=== PATIENT | male | born 1970 | race Two or more races ===

== ENCOUNTER 2019-12-20 02:14 | Emergency (ER) | payer SELFPAY ==
[~2019-12-20] VITALS: Ht 188 cm; Wt 81.6 kg
[2019-12-20] MEDS ORDERED: NITROGLYCERIN PACKET 1 GM PACKET TD ONE (02:30)
[2019-12-20] MEDS ORDERED: HYDROCODONE/APAP 10/325MG 1 EA TABLET PO ONE (02:30)
[2019-12-20] MEDS ORDERED: ASPIRIN 81 MG TAB.CHEW PO ONE (02:30)
[2019-12-20] MEDS ORDERED: ONDANSETRON 4 MG TAB.RAPDIS SL ONE (02:30)
[2019-12-20] MEDS ORDERED: NITROGLYCERIN PACKET 1 GM PACKET ONE (02:36)
[2019-12-20] MEDS ORDERED: ONDANSETRON 4 MG TAB.RAPDIS ONE (02:36)
[2019-12-20] MEDS ORDERED: HYDROCODONE/APAP 10/325MG 1 EA TABLET ONE (02:36)
[2019-12-20] MEDS ORDERED: ASPIRIN 81 MG TAB.CHEW ONE (02:37)
--- NOTE | 2019-12-20 02:42 | NUR ---
STEAM AND POWER SUPERVISOR AT BEDSIDE.
--- NOTE | 2019-12-20 02:45 | NUR ---
PATIENT CAME TO ER BED 4 C/O LEFT SIDED CHEST PAIN THAT RADIATES TO THE JAW THAT STARTED AN HOUR AGO. PATIENT STATES THAT HE HAS HAD 2 HEART ATTACKS IN THE PAST. AAOX4. NO SOB. BREATHING EVENLY AND UNLABORED ON ROOM AIR. CONNECTED TO HAND STITCHER.
[2019-12-20 02:52] LABS: EOSINOPHILS % (AUTO) 1.9 % (0.0-6.0); HEMATOCRIT 39 % (39-51); HEMOGLOBIN 12.6 g/dL (13.5-17.5); LYMPHOCYTES # (AUTO) 1.2 /CMM (0.8-4.8); LYMPHOCYTES % (AUTO) 37.1 % (20.0-44.0); MEAN CORPUSCULAR HGB CONC 33 g/dl (31.0-36.0); MEAN CORPUSCULAR VOLUME 92 fL (80-96); MONOCYTES # (AUTO) 0.4 /CMM (0.1-1.30); MONOCYTES % (AUTO) 11.2 % (2.0-12.0); NEUTROPHILS # (AUTO) 1.6 /CMM (1.8-8.9); NEUTROPHILS % (AUTO) 48.8 % (43.0-81.0); PLATELET COUNT (AUTO) 163 /CMM (150-450); RED BLOOD CELL COUNT(AUTO) 4.25 MIL/uL (4.5-6.0); WHITE BLOOD COUNT (AUTO) 3.2 K/uL (4.3-11.0)
[2019-12-20 03:03] LABS: CALCIUM, SERUM 8.7 mg/dL (8.5-10.1); CARBON DIOXIDE 28 mmol/L (21-32); CHLORIDE 106 mmol/L (98-107); CREATININE 0.9 mg/dL (0.6-1.3); GLUCOSE 100 mg/dL (74-106); POTASSIUM 3.1 mmol/L (3.5-5.1); SODIUM SERUM 142 mmol/L (136-145); UREA NITROGEN, BLOOD 17 mg/dL (7-18)
[2019-12-20] MEDS ORDERED: POTASSIUM CHLORIDE 20 MEQ TAB.PRT.SR PO ONE ×2 (03:30→03:33)
[2019-12-20 06:23] VITALS: BP 133/78
--- NOTE | 2019-12-20 06:32 | NUR ---
Patient discharged to home in stable condition. Written and verbal after care instructions given. Patient verbalizes understanding of instruction.
--- NOTE | 2019-12-20 06:33 | NUR ---
PATIENT REFUSED TO SIGN HOMELESS AND DISCHARGE PAPERWORK.
== END 2019-12-20 06:34 | disposition home or self-care (01) ==
LOC: ER 02:15
DX: R07.89 Other chest pain (principal); F17.210 Nicotine dependence, cigarettes, uncomplicated; I45.10 Unspecified right bundle-branch block; I25.2 Old myocardial infarction; I11.0 Hypertensive heart disease with heart failure; I50.9 Heart failure, unspecified; E87.6 Hypokalemia; Z59.0 Homelessness
CPT/HCPCS: 36415; 71045; 80048; 84484 ×2; 85025; 93005 ×2; 99285; 99406; Q0162

== ENCOUNTER 2020-02-15 13:33 | Inpatient (IN) | payer SELFPAY ==
[~2020-02-15] VITALS: Ht 193 cm; Wt 77.1 kg
--- NOTE | 2020-02-15 13:40 | NUR ---
NDT INSPECTOR/ZAHRA OPENING/TRANSFER NOTE RECEIVED PT VIA GURNEY IN STABLE CONDITION. PT WAS TRANSFERRED FROM [facility] IN STABLE CONDITION WITH NO ACUTE DISTRESS OR SOB NOTED. PT IS CURRENTLY ON DROPLET ISOLATION FOR RULE OUT TB. PT IS ON ROOM AIR SATURATING AT 99% AT THIS TIME. PT'S V/S ARE THE FOLLOWING BP: 121/68 HR 77, RR18 O2 99% ROOM AIR AND TEMPERATURE 97.7 ORAL. PT NOTED WITH LEFT AC 20' LEFT FA 20' INTACT, PATENT AND FLUSHING WELL AT THIS TIME. NO SIGNS OR SYMPTOMS OF INFECTION NOTED AT THIS TIME. PT IS AMBULATORY WITH SKIN INTACT. PT IS ON A REGULAR DIET AND FULL CODE. PT TESTED NEGATIVE FOR THE RAPID (FOR COVID-19) AT [facility] ENDORSED BY MARIANA (NURSE AT [facility]). PT IS ON TELE MONITORING WITH SR HR 77 NOTED AT THIS TIME. NO COMPLAINTS OF PAIN OR DISCOMFORT. ALL SAFETY MEASURES TAKEN AND IMPLEMENTED PER HOSPITAL POLICY. CALL LIGHT WITHIN REACH AND FUNCTIONING. WILL CONTINUE TO MONITOR AND ASSESS PT. Addendum: 02/15/20 at 1647 by MARLO CASTELLANOS RN PT IS ON AIRBORNE PRECAUTIONS TO RULE OUT TB NOT DROPLET PRECAUTION.
--- NOTE | 2020-02-15 13:54 | NUR ---
RECEIVED PATIENT PLACED ON AIRBORNE PRECAUTION,DR. MONTGOMERY NOTIFIED ,AWAITS ADMISSION ORDERS.
[2020-02-15 16:00] VITALS: BP 141/78
[2020-02-15] MEDS ORDERED: Z GUARD REMEDY 2 OZ OINT TP PRN (16:00)
[2020-02-15] MEDS ORDERED: HYDROCODONE/APAP 5/325MG TABLET PO PRN (16:00)
[2020-02-15] MEDS ORDERED: ONDANSETRON HCL/PF 4 MG/2 ML VIAL IVP PRN (16:00)
[2020-02-15] MEDS ORDERED: MAG HYDROX/AL HYDROX/SIMETH 30 ML UDC PO PRN (16:00)
[2020-02-15] MEDS ORDERED: MAGNESIUM HYDROXIDE 30 ML UDC PO PRN (16:00)
[2020-02-15] MEDS ORDERED: ACETAMINOPHEN 325 MG TABLET PO PRN (16:00)
--- NOTE | 2020-02-15 16:05 | NUR ---
CLARIFIED W/ DR. MONTGOMERY IF NEEDED TO SEND [employer] PER MD NEED TO DO CT FIRST SINCE MORE LIKELY NOT TB,PRIMARY RN MADE AWARE. AWAITS CT TODAY.
[2020-02-15] MEDS ORDERED: IV NS 0.9% 250 ML IV ONE (16:24)
[2020-02-15] MEDS ORDERED: IOHEXOL-350 100 ML VIAL IV ONE (16:24)
[2020-02-15] MEDS ORDERED: CT SWABBABLE VALVE TRANS SET 1 EA INFUS.SET MC ONE (16:24)
--- NOTE | 2020-02-15 16:29 | NUR ---
EPIC CADENCE ANALYST/ZAHRA NOTE PT PICKED UP BY FRANC[facility] FOR CT PULMONARY ANGIOGRAM. PT LEFT IN STABLE CONDITION. WILL AWAIT HIS RETURN.
--- NOTE | 2020-02-15 16:31 | NUR ---
FAMILY SERVICE CASEWORKER/ZAHRA NOTE DID MRSA SWAB ON THE RIGHT NARES. PT IN STABLE CONDITION AT THIS TIME. WILL CONTINUE TO MONITOR AND ASSESS PT.
--- NOTE | 2020-02-15 18:02 | NUR ---
relayed cta result to dr. stapleton per md tao to discontinue airborne precaution,staff made aware.
[2020-02-15] MEDS: IV NS 0.9% 1,000 ML IV PRN (19:00)
--- NOTE | 2020-02-15 19:05 | NUR ---
RN NOTE RECEIVED PATIENT IN BED RESTING. PATIENT IS ALERT AND ORIENTED X4, ABLE TO MAKE NEEDS KNOWN VERBALLY. SPEECH IS CLEAR. BREATHING IS EVEN AND UNLABORED ON ROOM AIR. FULL CODE. DX OF CHEST PAIN. NO COMPLAINTS OF ANY PAIN AT THIS TIME. SINUS RHYTHM WITH BBB SHOWN ON TELE MONITOR AT THIS TIME. SKIN IS INTACT, DRY AND WARM TO TOUCH. NOTED PATIENT WITH UNCLEAN EXTREMITIES. PER AM SHIFT RN, PATIENT REFUSED BED BATH. ON REGULAR DIET. IV SITES ON LAC AND LFA ARE PATENT. NS 0.9% RUNNING AT 75 ML/HR. PATIENT IS AMBULATORY, BRP. PATIENT REQUESTING TO BE LEFT ALONE. IN NO APPARENT DISTRESS NOTED AT THIS TIME. CALL LIGHT IS WITHIN EASY REACH. WILL CONTINUE TO MONITOR.
--- NOTE | 2020-02-15 19:32 | NUR ---
OPTOMETRY PROFESSOR/CLOSING NOTE PT IS CURRENTLY IN BED. PT APPEARS TO BE SLEEPING BUT IS EASILY AROUSALED TO BOTH VERBAL AND TACTILE STIMULI. OBSERVED PT'S CHEST FOR SYMMETRICAL MOVEMENT. PT IS IN STABLE CONDITION AT THIS TIME WITH NO ACUTE DISTRESS NOTED. PT DOES NOT COMPLAIN OF ANY PAIN OR DISCOMFORT AT THIS TIME . PT HAS A LEFT AC 20' AND A LEFT FA 22' THAT IS INTACT AND PATENT AND FLUSHING WELL AT THIS TIME. NO S/S OF INFECTION OR INFILTRATION NOTED AT THIS TIME. PT'S SKIN IS INTACT AND PT IS AMBULATORY TO THE RESTROOM ONLY NEEDS HELP WITH IV. ALL NEEDS MET AND ASSESSED. PT IS NO LONGER ON AIRBORNE PRECAUTIONS. ALL SAFETY MEASURES TAKEN AND IMPLEMENTED. CALL LIGHT WITHIN REACH AND FUNCTIONING. WILL ENDORSE TO NEXT SHIFT NURSE FOR JORDI.
[2020-02-15 20:00] VITALS: BP 125/80
[2020-02-16] VITALS: BP 128/73
[2020-02-16 04:00] VITALS: BP 136/76
--- NOTE | 2020-02-16 06:33 | NUR ---
RN NOTE PATIENT REMAINED STABLE THROUGHOUT THE NIGHT. NO SIGNIFICANT CHANGES NOTED. DUE MEDS GIVEN AND TOLERATED WELL. PATIENT KEPT CLEAN, DRY, AND COMFORTABLE. ALL NEEDS ATTENDED AND MET. WILL ENDORSE TO AM SHIFT RN FOR CONTINUATION OF CARE. Addendum: 02/16/20 at 0641 by MATT MCKINNEY RN WRONG PATIENT.
--- NOTE | 2020-02-16 06:35 | NUR ---
RN NOTE PATIENT REFUSED BED BATH IN THIS SHIFT. PATIENT VERBALIZED NOT TO WAKE HIM UP AT NIGHT.
--- NOTE | 2020-02-16 06:41 | NUR ---
RN NOTE PATIENT KEPT ON IV FLUIDS NS @ 75ML/HR. PATIENT REMAINED STABLE THROUGHOUT THE NIGHT. NO SIGNIFICANT CHANGES NOTED. WILL ENDORSE TO AM SHIFT RN FOR CONTINUATION OF CARE.
--- NOTE | 2020-02-16 07:00 | NUR ---
RN TELE1 PATIENT A/OX 4 PATIENT IS ASLEEP BUT EASILY WOKEN , PATIENT STATED HE DOES NOT WANT TO BE BOTHERS. ONLY WHEN THINGS NEED TO GET DONE. PATIENT ON TELE MONITOR. EXTERNAL. SR W BBB 60'S . PATIENT COMPLAINS OF NO PAIN, NO ACUTE RESPIRATORY DISTRESS AT THIS TIME. PATIENT ABLE TO AMBULATE TO THE BATH ROOM BUT INFORMED THE PATIENT TO USE CALL LIGHT IF PATIENT NEEDS HELP AT ANY TIME. PATIENT SKIN REFUSED TO HAVE SKIN INSPECTED. PATIENT REGULAR DIET. LAC 20G#M LFA 22# RUNNING 0.9% NS @ 75 ML/HR BOTH LINES FLUSHED AND PATENT, NO SIGNS OF INFILTRATION. NO S/S OF INFECT. BED LOCKED LOWEST POSITION , CALL LIGHT WITH IN REACH ALL SAFETY MEASURES IMPLEMENTED PER HOSPITAL POLICY. 2 X RAILS UP .
[2020-02-16 07:49] LABS: CALCIUM, SERUM 8.7 mg/dL (8.5-10.1); CREATININE 0.7 mg/dL (0.6-1.3); MAGNESIUM 2.6 mg/dL (1.8-2.4); PHOSPHORUS 2.4 mg/dL (2.5-4.9); POTASSIUM 4.4 mmol/L (3.5-5.1)
[2020-02-16 07:52] LABS: BASOPHILS % (AUTO) 0.8 % (0.0-2.0); EOSINOPHILS % (AUTO) 2.9 % (0.0-6.0); HEMATOCRIT 39 % (39-51); HEMOGLOBIN 12.6 g/dL (13.5-17.5); LYMPHOCYTES # (AUTO) 1.9 /CMM (0.8-4.8); LYMPHOCYTES % (AUTO) 46.1 % (20.0-44.0); MEAN CORPUSCULAR HGB CONC 33 g/dl (31.0-36.0); MEAN CORPUSCULAR VOLUME 92 fL (80-96); MONOCYTES # (AUTO) 0.4 /CMM (0.1-1.30); MONOCYTES % (AUTO) 9.9 % (2.0-12.0); NEUTROPHILS # (AUTO) 1.7 /CMM (1.8-8.9); NEUTROPHILS % (AUTO) 40.3 % (43.0-81.0); PLATELET COUNT (AUTO) 285 /CMM (150-450); RED BLOOD CELL COUNT(AUTO) 4.25 MIL/uL (4.5-6.0); WHITE BLOOD COUNT (AUTO) 4.2 K/uL (4.3-11.0)
[2020-02-16 08:00] VITALS: BP 143/98
[2020-02-16] MEDS ORDERED: LEVOFLOXACIN 500 MG /D5W 100ML 500 MG in PREMIX 1 EA IV SCH (11:00)
[2020-02-16] MEDS ORDERED: LEVO500T90 PO (11:09)
[2020-02-16] MEDS ORDERED: NEUTRA PHOS 1 POWD.PACKET PO ONE (11:30)
[2020-02-16 12:00] VITALS: BP 153/73
--- NOTE | 2020-02-16 12:00 | NUR ---
LOCKSTITCH COLLAR SETTER - PATIENT REFUSED TO PUT ON TELE MONITOR
[2020-02-16] MEDS ORDERED: METOPROLOL TARTRATE INJ 5 MG/5 ML AMPUL IVP PRN (12:30)
[2020-02-16] MEDS ORDERED: IV NS 0.9% 500 ML IV PRN (12:30)
[2020-02-16] MEDS ORDERED: NITROGLYCERIN 0.4 MG/TAB BOTTLE SL ONE (12:30)
--- NOTE | 2020-02-16 12:30 | NUR ---
DEPUTY PROGRAM MANAGER - CT ANGIO W CONTRAST
[2020-02-16] MEDS ORDERED: METOPROLOL TARTRATE INJ 5 MG/5 ML AMPUL ONE (12:34)
[2020-02-16] MEDS ORDERED: IV NS 0.9% 250 ML IV ONE (12:35)
[2020-02-16] MEDS ORDERED: IOHEXOL-350 100 ML VIAL IV ONE (12:35)
[2020-02-16 16:00] VITALS: BP 125/78
--- NOTE | 2020-02-16 18:28 | NUR ---
RN TELE1 AT THIS TIME PATIENTS REMAINS STABLE, NO PAIN, NO ACUTE RESPIRATORY DISTRESS AT THIS TIME. PATIENT VITALS STABLE. PATIENT STILL AT TIMES UNCOOPERATIVE WITH CARE. . PATIENT A/OX 4 . ON EXTERNAL MONITOR WITH BBB . PATIENT SKIN REFUSED BED BATH FOR AM CARE. HAS URINAL AT BED SIDE. PATIENT LAC , LFA 22, RAC 18 WITH NS 0.9% 75 ML/HR . BED LOCKED LOWEST POSITION CALL LIGHT ALL SAFETY MEASURES IMPLEMENTED PER HOSPITAL POLICY. PATIENT ABLE TO INDEPENDENTLY MOVE AROUND IN BED
--- NOTE | 2020-02-16 19:25 | NUR ---
RN NOTE RECEIVED PATIENT IN BED RESTING. PATIENT IS ALERT AND ORIENTED X4, ABLE TO MAKE NEEDS KNOWN VERBALLY. SPEECH IS CLEAR. BREATHING IS EVEN AND UNLABORED ON ROOM AIR. FULL CODE. DX OF CHEST PAIN. NO COMPLAINTS OF ANY PAIN AT THIS TIME. PER AM SHIFT REPORT, PATIENT REFUSED TELE BOX FOR MONITORING X3. SKIN IS INTACT, DRY AND WARM TO TOUCH. NOTED PATIENT WITH UNCLEAN EXTREMITIES. PER AM SHIFT RN, PATIENT REFUSED BED BATH. ON REGULAR DIET. IV SITES ON LAC, LFA, AND RAC ARE PATENT. NS 0.9% RUNNING AT 75 ML/HR. IN NO APPARENT DISTRESS NOTED AT THIS TIME. CALL LIGHT IS WITHIN EASY REACH. WILL CONTINUE TO MONITOR.
[2020-02-16 20:00] VITALS: BP 131/73
[2020-02-16] MEDS: IV NS 0.9% 1,000 ML IV PRN (21:30)
[2020-02-17] VITALS: BP 119/83
[2020-02-17 04:00] VITALS: BP 130/83
--- NOTE | 2020-02-17 06:45 | NUR ---
RN NOTE PATIENT REMAINED STABLE THROUGHOUT THE NIGHT. NO SIGNIFICANT CHANGES NOTED. PATIENT REFUSED BED BATH. IV FLUIDS NS RUNNING AT 75 ML/HR AND TOLERATING WELL. IN NO APPARENT DISTRESS NOTED AT THIS TIME. ALL NEEDS ATTENDED AND MET. WILL ENDORSE TO AM SHIFT RN FOR CONTINUATION OF CARE.
--- NOTE | 2020-02-17 07:00 | NUR ---
RN TELE1 PATIENT A/OX 4 PATIENT IS ASLEEP BUT EASILY WOKEN , PATIENT STATED HE DOES NOT WANT TO BE BOTHERED ONLY WHEN THINGS NEED TO GET DONE. PATIENT ON TELE MONITOR. EXTERNAL. SR W BBB 60'S . PATIENT COMPLAINS OF NO PAIN, NO ACUTE RESPIRATORY DISTRESS AT THIS TIME. PATIENT ABLE TO AMBULATE TO THE BATH ROOM BUT INFORMED THE PATIENT TO USE CALL LIGHT IF PATIENT NEEDS HELP AT ANY TIME. PATIENT SKIN REFUSED TO HAVE SKIN INSPECTED. PATIENT REGULAR DIET. LAC 20G#M LFA 22# RUNNING 0.9% NS @ 75 ML/HR BOTH LINES FLUSHED AND PATENT, NO SIGNS OF INFILTRATION. NO S/S OF INFECT. BED LOCKED LOWEST POSITION , CALL LIGHT WITH IN REACH ALL SAFETY MEASURES IMPLEMENTED PER HOSPITAL POLICY. 2 X RAILS UP
[2020-02-17 07:48] LABS: CALCIUM, SERUM 8.6 mg/dL (8.5-10.1); CREATININE 0.8 mg/dL (0.6-1.3); PHOSPHORUS 3.4 mg/dL (2.5-4.9); POTASSIUM 4.3 mmol/L (3.5-5.1)
[2020-02-17 08:00] VITALS: BP 135/77
[2020-02-17] MEDS ORDERED: LEVOFLOXACIN (250MG) 250 MG TABLET PO SCH (11:00)
[2020-02-17 12:00] VITALS: BP 133/68
[2020-02-17] MEDS: IV NS 0.9% 1,000 ML IV PRN (13:07)
--- NOTE | 2020-02-17 14:15 | NUR ---
Patient spoke to the patient for secondary social studies teacher consult requested by Aicha Manzanares MD. Patient has been homeless for 3 1/2 years. Patient has not applied for any government aid. Patient denies alcohol, drug, and cigarette use. Patient reports being diagnosed with schizophrenia but does not remember when and is not taking any medications currently. Patient would like placement. This SW to call [facility] option [facility] to create a profile for the patient in hopes of finding placement.
--- NOTE | 2020-02-17 14:18 | NUR ---
Reconciliation Machine Operator called [facility] option [facility]. Per recording, patient can no longer be referred as of February 05, occupancies for [facility] are full. SW to provide homelessness resources for patient's discharge.
--- NOTE | 2020-02-17 15:40 | NUR ---
WATER POLLUTION CONTROL INSPECTOR - PATIENT SAID HE IS SUICIDAL CHARGE NURSE NOTIFIED. PRIMARY NOTIFIED ORDERED PSYCH CONSULT. HATCHERY HELPER NOTIFIED
[2020-02-17 16:00] VITALS: BP 133/72
--- NOTE | 2020-02-17 16:15 | NUR ---
This SW spoke to Salty Bennett LCSW from Crisis Team, Salty Bennett to come and assess the patient.
--- NOTE | 2020-02-17 16:22 | NUR ---
BUILDING DRAFTER CRISIS TEAM ON AMOS PANCHAL
--- NOTE | 2020-02-17 18:00 | NUR ---
SAILBOAT CAPTAIN - CRISIS TEAM EVALUATION DONE 5150 COMPLETED. PATIENT TO BE MOVED GPS DISCHARGE PAPERS COMPLETED PATIENT REFUSED BED BATH , DISCHARGE PAPERS COMPLETED PRIMARY AWARE OF GPS TRANSFER. DR. SÁNCHEZ AWARE OF DISCHARGE. 220-B ROOM
== END 2020-02-17 18:40 | disposition home or self-care (01) | DRG 202 ==
LOC: TELE1 13:33 → TELE-TD 15:49 → TELE1 18:09
PROVIDERS: ADMIT Internal Medicine; ATTEND Internal Medicine
DX: J20.9 Acute bronchitis, unspecified (principal); I42.8 Other cardiomyopathies; E44.0 Moderate protein-calorie malnutrition; I25.10 Atherosclerotic heart disease of native coronary artery without angina pectoris; I11.0 Hypertensive heart disease with heart failure; I50.9 Heart failure, unspecified; Z59.0 Homelessness; E88.09 Other disorders of plasma-protein metabolism, not elsewhere classified; F19.10 Other psychoactive substance abuse, uncomplicated; Z91.19 Patient's noncompliance with other medical treatment and regimen; F17.200 Nicotine dependence, unspecified, uncomplicated; R73.9 Hyperglycemia, unspecified; K44.9 Diaphragmatic hernia without obstruction or gangrene
CPT/HCPCS: 36415; 75574; 80048-TC; 82962-TC; 83735-TC; 84100-TC; 84484-TC; 85025-TC; 87081-TC; 93307-TC; A4216; G0378; J1956; J3490; J7030; J7050; Q9967

== ENCOUNTER 2020-02-17 18:39 | Inpatient (IN) | payer SELFPAY ==
[~2020-02-17] VITALS: Ht 193 cm; Wt 77.1 kg
[~2020-02-17 18:39] MED LIST: LEVO500T90 PO
--- NOTE | 2020-02-17 18:58 | NUR ---
Pt. arrived in the unit via a wheelchair and wheeled by staff from [facility]. Pt. placed in room [address] Irving made aware of the admission and with orders. Addendum: 02/17/20 at 1914 by MAURICE ROBBINS RN Will endorse to the incoming nurse for the admission.
[2020-02-17] MEDS ORDERED: ZOLPIDEM TARTRATE 5 MG TABLET PO PRN (19:00)
[2020-02-17] MEDS ORDERED: LORAZEPAM 1 MG TABLET PO PRN (19:00)
[2020-02-17] MEDS ORDERED: MAG HYDROX/AL HYDROX/SIMETH 30 ML UDC PO PRN (19:00)
[2020-02-17] MEDS ORDERED: ACETAMINOPHEN 325 MG TABLET PO PRN (19:00)
[2020-02-17] MEDS ORDERED: MAGNESIUM HYDROXIDE 30 ML UDC PO PRN (19:00)
[2020-02-17] MEDS ORDERED: BLOOD SUGAR DIAGNOSTIC 1 EACH STRIP IN ONE (19:00)
--- NOTE | 2020-02-17 19:30 | NUR ---
GPS ADMISSION NOTE: ADMITTED THIS 49 Y/O MALE PATIENT. ADMIT FROM [facility] ZAHRA. ADMITTED TO GPS 5150 HOLD , DTS , PER HOLD , PT. COMPLAINED ABOUT SUICIDAL IDEATION AND HEARING VOICES OF CUTTING WRISTS TO END HIS LIFE. UPON FACE TO FACE ASSESSMENT PATIENT IS A&O X 3 , DISHEVELED, FLAT AFFECT, DEPRESSED. PT. REFUSED TO SIGNS ADMISSION CONSENT PAPERS. BOTH MD AWARE AND NOTIFIED OF THE ADMISSION, BELONGINGS CONTRABAND WERE DONE ,PT. RIGHTS DISCUSS , PROVIDE THE PT. WITH HANDBOOK, AND MEDICATIONS GUIDE, ENVIRONMENTAL SAFETY CHECK DONE, ENCOURAGED PT. VERBALIZED ANY FEELINGS OR CONCERNS TO STAFF, ORIENT TO UNIT POLICY, NO ACUTE DISTRESS NOTED,VITAL SIGNS WNL ,DENIES ANY PAIN AT THIS TIME,WILL CONTINUE TO MONITOR FOR Q15 SAFETY AND BEHAVIOR.
[2020-02-17 20:01] VITALS: BP 141/82
[2020-02-17 22:45] VITALS: BP 141/82
[2020-02-18 07:49] LABS: CHOLESTEROL 138 mg/dL (<200); HDL CHOLESTEROL 43 mg/dL (40-60); LDL 85 mg/dL (0-99); TRIGLYCERIDES 62 mg/dL (30-150)
[2020-02-18 08:00] VITALS: BP 119/83
[2020-02-18 08:05] LABS: BILIRUBIN,TOTAL 0.2 mg/dL (0.2-1.0); CALCIUM, SERUM 8.7 mg/dL (8.5-10.1); CREATININE 0.8 mg/dL (0.6-1.3); POTASSIUM 4.2 mmol/L (3.5-5.1); TOTAL PROTEIN, SERUM 6.7 g/dL (6.4-8.2)
[2020-02-18] MEDS: LEVOFLOXACIN (250MG) 250 MG TABLET PO SCH (09:14)
[2020-02-18 12:15] LABS: CREATININE 0.8 mg/dL (0.6-1.3)
[2020-02-18] MEDS ORDERED: LEVOFLOXACIN (500MG) 500 MG TABLET PO SCH (15:00)
[2020-02-18 16:00] VITALS: BP 112/73
[2020-02-18] MEDS: VENLAFAXINE XR 75 MG CAP.SR.24H PO SCH (16:08)
[2020-02-18 20:25] VITALS: BP 128/69
[2020-02-18] MEDS: QUETIAPINE FUMARATE 25 MG TABLET PO SCH (21:12)
[2020-02-19 08:00] VITALS: BP 140/79
[2020-02-19] MEDS: LEVOFLOXACIN (250MG) 250 MG TABLET PO SCH ×2 (09:00→09:57)
[2020-02-19] MEDS: VENLAFAXINE XR 75 MG CAP.SR.24H PO SCH (09:50)
[2020-02-19] MEDS ORDERED: OLANZAPINE 10 MG VIAL IM STA (15:05)
--- NOTE | 2020-02-19 15:15 | NUR ---
RN NOTE:PATIENT AGITATED AND HOSTILE ASSAULTIVE,REDIRECT PATIENT TO LOWER STIMULI SETTING AND TRIED TO CALMING HER DOWN , OFFERED 1:1 INTERVENTION BUT PATIENT STILL AGITATED WITH ASSAULTIVE BEHAVIOR ,THREATENING STAFF CALLED WITH NEW ORDER ZYPREXA 10MG IM ,PATIENT STATED I WANT SHOT VOLUNTARILY ACCEPT ZYPREXA 10MG IM NO PHYSICAL HOLD ,WILL CONTINUE TO MONITOR .
[2020-02-19 16:00] VITALS: BP 128/65
[2020-02-19 20:01] VITALS: BP 129/67
[2020-02-19] MEDS: QUETIAPINE FUMARATE 25 MG TABLET PO SCH (21:11)
--- NOTE | 2020-02-19 21:22 | NUR ---
GPS RN NOTES: REFUSED WEEKLY SKIN ASSESSMENT PT REFUSED WEEKLY SKIN ASSESSMENT AND PICTURE. PT EASILY AGITATED. EXPLAIN RISKS AND BENEFITS. PT STILL REFUSED X 3. CONTINUE TO MONITOR.
[2020-02-20 08:00] VITALS: BP 134/74
--- NOTE | 2020-02-20 09:00 | NUR ---
RN NOTE- PT WITHDRAWN, MINIMAL INTERACTION NO EYE CONTACT POOR PO INTAKE MED COMPLIANT DENIES SI [facility]
[2020-02-20] MEDS: VENLAFAXINE XR 75 MG CAP.SR.24H PO SCH (09:20)
[2020-02-20] MEDS: LEVOFLOXACIN (250MG) 250 MG TABLET PO SCH (09:20)
[2020-02-20] MEDS: QUETIAPINE FUMARATE 25 MG TABLET PO SCH ×3 (10:19→21:10)
--- NOTE | 2020-02-20 12:40 | NUR ---
Family Contact: Pt does not have any family to contact.
--- NOTE | 2020-02-20 12:47 | NUR ---
Initial Discharge Plan:Pt is currently homeless and stated that he would like placement because he does not want to be homeless anymore. SW will work with the pt and the MD regarding appropriate discharge planning. SW will form a safe and proper discharge plan.
[2020-02-20 16:00] VITALS: BP 158/88
--- NOTE | 2020-02-20 16:07 | NUR ---
Individual Intervention: SW attempted to talk to the SW about discharge planning but the pt stated that he was unsure about his future and cannot remember his resources. Pt began getting agitated and stated that he did not want to talk anymore.
[2020-02-20 19:54] VITALS: BP 122/65
[2020-02-21 08:00] VITALS: BP 129/84
[2020-02-21] MEDS: QUETIAPINE FUMARATE 25 MG TABLET PO SCH ×3 (08:53→21:08)
[2020-02-21] MEDS: LEVOFLOXACIN (250MG) 250 MG TABLET PO SCH (08:53)
[2020-02-21] MEDS: VENLAFAXINE XR 75 MG CAP.SR.24H PO SCH (08:53)
[2020-02-21 16:00] VITALS: BP 118/71
[2020-02-21 19:43] VITALS: BP 112/63
--- NOTE | 2020-02-22 05:26 | NUR ---
GPS RN NOTES: REFUSED SKIN ASSESSMENT PT REFUSED SKIN ASSESSMENT AND PICTURE. PT. EASILY AGITATED, EXPLAIN RISKS AND BENEFITS. ENCOURAGED ,PT. STILL REFUSED X 3. CONTINUE TO MONITOR.
[2020-02-22 08:00] VITALS: BP 115/69
[2020-02-22] MEDS: QUETIAPINE FUMARATE 25 MG TABLET PO SCH ×3 (08:21→21:03)
[2020-02-22] MEDS: LEVOFLOXACIN (250MG) 250 MG TABLET PO SCH (08:21)
[2020-02-22] MEDS: VENLAFAXINE XR 75 MG CAP.SR.24H PO SCH (08:21)
--- NOTE | 2020-02-22 09:00 | NUR ---
RN NOTE- PT CURRENTLY DENIES SI QUIET WITHDRAWN REQUESTING FOOD NO BEHAVIORAL ISSUES FAIR EYE CONTACT ENGAGES MINIMALLY
--- NOTE | 2020-02-22 10:10 | NUR ---
Intervention with the MD and the pt: NITHIN and MD, Dr. Irving, met with the pt and asked about his stay in the hospital. Pt stated that he wanted to take Gabapentin but the MD stated that he is currently on a psychiatric unit and does not need that medication at this time. stated that he can go to the medical floor of hospitals for that medication. MD then asked the pt how he was feeling and the pt stated that he remains suicidal. MD stated that he will evaluate the pt at a different time.
--- NOTE | 2020-02-22 12:51 | NUR ---
RN NOTE- EKG RESULTS PROLONGED QTC AT 483. DR LEYVA NOTIFIED. ORDERED EKG FOR Thursday/ COMPLIED
[2020-02-22 16:00] VITALS: BP 129/73
[2020-02-22 20:09] VITALS: BP 134/70
[2020-02-23 08:00] VITALS: BP 125/77
[2020-02-23] MEDS: LEVOFLOXACIN (250MG) 250 MG TABLET PO SCH (08:51)
[2020-02-23] MEDS: VENLAFAXINE XR 75 MG CAP.SR.24H PO SCH (08:51)
[2020-02-23] MEDS: QUETIAPINE FUMARATE 25 MG TABLET PO SCH ×3 (08:51→21:19)
[2020-02-23 16:00] VITALS: BP 118/78
[2020-02-23 20:29] VITALS: BP 161/94
[2020-02-23 21:35] VITALS: BP 142/74
[2020-02-24 08:00] VITALS: BP 119/69
[2020-02-24] MEDS: QUETIAPINE FUMARATE 25 MG TABLET PO SCH ×5 (08:34→21:26)
[2020-02-24] MEDS: LEVOFLOXACIN (250MG) 250 MG TABLET PO SCH (08:34)
[2020-02-24] MEDS: VENLAFAXINE XR 150 MG CAP.SR.24H PO SCH (08:34)
[2020-02-24] MEDS ORDERED: VENLAFAXINE XR 75 MG CAP.SR.24H PO SCH (09:00)
--- NOTE | 2020-02-24 09:00 | NUR ---
RN NOTE-PT CALM QUIET COOPERATIVE DENIES SI HI AH VH THOUGH PT HAS FLAT AFFECT AND POOR EYE CONTACT. ENGAGES MINIMALLY PO INTAKE GOOD MED COMPLIANT NEEDS ATTENDED.
--- NOTE | 2020-02-24 09:05 | NUR ---
Intervention with the MD and the pt: NITHIN and , Dr. Irving, met with the pt once again and inquired about the pts social security number so that the insurance information can be located and the pt can be placed. Pt repeatedly stated that he cannot remember. NITHIN and stated that if we cannot place the pt then he will be placed on the street. Pt stated that he understood. stated that he will give the pt throughout the weekend to recall his social security number.
--- NOTE | 2020-02-24 09:07 | NUR ---
CONSTANTINO NOTE- SEROQUEL 5M MG GIVEN MORNING DOSE 09[address] DR LEYVA CHANGED TO QID. MORNING DOSE ALREADY GIVEN. Addendum: 02/24/20 at 1144 by LAUREN MAC RN CONSTANTINO NOTE- ERROR ABOVE- SHOULD READ SEROQUEL 50 MG MORNING DOSE GIVEN
--- NOTE | 2020-02-24 11:44 | NUR ---
RN NOTE- DR LEYVA SHOWN THIS MORNINGS EKG RESULTS. NO NEW ORDERS
[2020-02-24 16:00] VITALS: BP 129/73
[2020-02-24 20:14] VITALS: BP 106/68
[2020-02-25 08:00] VITALS: BP 129/57
[2020-02-25] MEDS: VENLAFAXINE XR 150 MG CAP.SR.24H PO SCH (09:09)
[2020-02-25] MEDS: QUETIAPINE FUMARATE 25 MG TABLET PO SCH ×4 (09:09→21:25)
--- NOTE | 2020-02-25 12:30 | NUR ---
RN NOTE: PAIN PT C/O 3/10 BILAT LOWER EXTREMITY PAIN. MEDICATED WITH TYLENOL 650 MG PO PRN
[2020-02-25 16:00] VITALS: BP 131/66
[2020-02-25 20:16] VITALS: BP 101/52
[2020-02-26 08:00] VITALS: BP 119/85
[2020-02-26] MEDS: VENLAFAXINE XR 150 MG CAP.SR.24H PO SCH (08:16)
[2020-02-26] MEDS: QUETIAPINE FUMARATE 25 MG TABLET PO SCH ×4 (08:16→21:30)
[2020-02-26 16:00] VITALS: BP 112/71
--- NOTE | 2020-02-26 20:30 | NUR ---
GPS-RN NOTE: PATIENT REFUSED WEEKLY SKIN ASSESSMENT.
[2020-02-26 20:50] VITALS: BP 97/57
[2020-02-26 21:28] VITALS: BP 118/61
[2020-02-27 08:00] VITALS: BP 132/80
[2020-02-27] MEDS: VENLAFAXINE XR 150 MG CAP.SR.24H PO SCH (08:03)
[2020-02-27] MEDS: QUETIAPINE FUMARATE 25 MG TABLET PO SCH ×2 (08:04→12:07)
--- NOTE | 2020-02-27 09:55 | NUR ---
NITHIN Individual Note: This writer producer and Dr. Irving met with pt to discuss treatment and discharge plan. Pt stated he gave the hospital his sons identity as his own and provided this writer producer with accurate information. Pts name is Kong Moreno, birthday [birth year], social security [phone]. NITHIN attempted to discuss placement options with pt, however, pt refused SNF, Board and Care, and Independent Living. He stated he does not have any sort of income and wants to go to a senior living.
--- NOTE | 2020-02-27 09:58 | NUR ---
NITHIN Coordination of Care: Pt will follow up with a psychiatrist for an intake evaluation at [facility] for psychiatric services located at [address] [place] [address]; ([phone]) on 02/28/20 at 1PM. This senior medical writer spoke with wali Oakley who arranged appointment. Patient will follow up with (Clinical Support Associate) Dr. England located [address] [place] [address]; ([phone]) walk-in Thursday, Thursday, , Thursday between 9:45AM.
--- NOTE | 2020-02-27 10:36 | NUR ---
NITHIN Discharge Note: Patient is choosing to be discharged to the street. Patient is provided with a tap card. Patient is alert and oriented x4 and is agreeable with discharge plan. Patient denies suicidal or homicidal ideation. Patient does not have any support system to notify of discharge plans. Patient refused any alternate placements such as SNF, Board and Care, and Independent Living. Pt will follow up with a psychiatrist at [facility] for psychiatric services [place] at [address] [place] [address]; ([phone]) on 02/28/20 1PM this will be an intake evaluation. Patient will follow up with (Equipment Validation Specialist) Dr. England located [facility] [place] [address]; ([phone]) walk-in Thursday, Thursday, , Thursday between 9:45AM. provided patient with a copy of the [facility] homeless directory which provides information on locations for hot meals, sack lunches, food pantries, and showers. Patient was provided referrals to the following substance abuse programs: [facility] Substance Abuse Self-helpline ([phone]); [facility] [address] [place] [address] ([phone]); [address] [address] ([phone]); [facility] ([phone]); [facility] ([phone]); [facility] ([phone]); [facility] ([phone]). Patient presented with euthymic mood and congruent affect. Patient signed the homeless waiver form and a copy was placed in the chart. Nursing completed homeless check list.
--- NOTE | 2020-02-27 14:00 | NUR ---
RESIDENTIAL SUBCONTRACTOR NOTE: 49 YEAR OLD MALE DISCHARGED TO THE STREETS PER PT'S REQUEST IN STABLE CONDITION. COMPLIANT WITH MEDICATIONS, COOPERATIVE WITH TREATMENT PLANS. PATIENT DENIES SI/HI AND INSTRUCTED TO GO TO THE CLOSEST ER IF DEVELOPING SI/HI. BEHAVIOR IMPROVED, PSYCHIATRIC TREATMENT PLANS MET, MEDICAL TREATMENT PLANS TO CONTINUE WITH FOLLOW UP APPOINTMENT WITH OUTSIDE SPECIAL DELIVERY CARRIER AFTER DISCHARGE. EDUCATED PT ABOUT AFTER CARE PLAN AND COPY PROVIDED. RETURNED PERSONAL BELONGINGS TO PT. MEDICATIONS RECONCILED WITH DR. LEYVA AND HILARIO LUNA. PT SIGNED DISCHARGE PAPERWORK AND LEFT THE UNIT VIA AMBULATION WITH TRANSPORT VOUCHER AT 1400.
== END 2020-02-27 14:00 | disposition home or self-care (01) | DRG 885 ==
LOC: GPS 18:39
PROVIDERS: ADMIT Psychiatry & Neurology Psychiatry; ATTEND Nurse Practitioner Acute Care
DX: F33.3 Major depressive disorder, recurrent, severe with psychotic symptoms (principal); E44.0 Moderate protein-calorie malnutrition; J20.9 Acute bronchitis, unspecified; Z68.20 Body mass index [BMI] 20.0-20.9, adult; F19.10 Other psychoactive substance abuse, uncomplicated; F29 Unspecified psychosis not due to a substance or known physiological condition; Z59.0 Homelessness; Z81.8 Family history of other mental and behavioral disorders; R79.89 Other specified abnormal findings of blood chemistry; F60.89 Other specific personality disorders; F60.2 Antisocial personality disorder; F60.3 Borderline personality disorder
CPT/HCPCS: 36415; 80053-TC; 80061-TC; 82565-TC; 87081-TC; J3490